=== PATIENT | female | born 1945 ===

== ENCOUNTER 2022-03-24 11:00 | Inpatient (IN) | payer OTHER ==
[~2022-03-24] VITALS: Ht 162.6 cm; Wt 104.3 kg
[~2022-03-24 11:00] MED LIST: ACYCLOVIR800 MG; ADULT LOW DOSE81 M1 PO; AMPICILLIN125 MG/5 M; GABAPENTIN100 MG; GLIPIZIDE10 MG; HUMULIN R100 UNIT/1 SUBCUTANEO; LANTUS; METAMUCIL POWD; METFOR PO; PERCOCET 10-3251 TAB; TRAMADOL HCL25 GM
[2022-03-29] MEDS ORDERED: METFORMIN HCL500 MG (13:03)
[2022-03-31] MEDS ORDERED: OXYC1TAB9 PO (06:55)
[2022-03-31] MEDS ORDERED: XARELTO10 MG PO (06:55)
[2022-03-31] MEDS ORDERED: INTEGRA PLUS C1 EACH PO (06:55)
[2022-03-31] MEDS ORDERED: BACTRIM DS TAB1 EACH PO (06:55)
== END 2022-03-31 15:03 | DRG 470 ==
LOC: ADM 11:00 → SURH 03-29 07:00 → O/R 03-29 08:15 → CIR.AMB 03-29 11:00 → EDSTATUS 03-29 11:00 → SURH 03-29 11:00
PROVIDERS: ADMIT Orthopaedic Surgery Sports Medicine; ATTEND Orthopaedic Surgery Sports Medicine
PROC: 0SRC0J9 Replacement of Right Knee Joint with Synthetic Substitute, Cemented, Open Approach (ICD-10-PCS; principal; 2022-03-29 10:45)
DX: M17.11 Unilateral primary osteoarthritis, right knee (principal); I10 Essential (primary) hypertension; E11.9 Type 2 diabetes mellitus without complications; Z20.822 Contact with and (suspected) exposure to COVID-19